=== PATIENT | female | born 1955 ===

== ENCOUNTER 2019-02-27 14:59 | Outpatient (CLI) | payer BC, OTHER ==
--- NOTE | 2019-02-28 08:33 | XRAY Report ---
Reason: NICOTINE DEPENDENCE, UNSPECIFIED, UNCOMPLICATED Procedure Date: 02/27/2019 Accession Number: [id number] / [id number] Procedure: XRS - Chest 2 View X-Ray CPT Code: 62954 Final Report FULL RESULT: EXAM: CHEST RADIOGRAPHY EXAM DATE: 02/27/2019. CLINICAL HISTORY: Nicotine dependence, UNSPECIFIED, UNCOMPLICATED. COMPARISON: None. TECHNIQUE: PA and lateral views. FINDINGS: Lungs/Pleura: Normal vasculature. Ill-defined opacity in the right apex. Nipple shadow projected over the right lower chest. No pleural fluid or pneumothorax. Mediastinum: Heart size is normal. Mild aortic tortuosity, otherwise normal mediastinal contours. Bones: Minimal degenerative changes of the spine and mild sigmoid thoracic scoliosis. IMPRESSION: Ill-defined opacity in the right apex; this could represent scarring or an ill-defined nodule. Further evaluation could be obtained with chest CT. Mild aortic tortuosity could be secondary to hypertension or atherosclerosis. [facility]
== END 2019-02-27 15:00 | disposition home or self-care (01) ==
LOC: DI.S 14:59
PROVIDERS: ATTEND Registered Nurse
DX: F17.200 Nicotine dependence, unspecified, uncomplicated (principal)
CPT/HCPCS: 71046

== ENCOUNTER 2019-05-03 11:42 | Outpatient (CLI) | payer OTHER ==
[2019-05-03 12:20] LABS: CREATININE 0.8 mg/dL (0.4-1.0)
== END 2019-05-03 11:43 | disposition home or self-care (01) ==
LOC: LAB 11:42
DX: Z98.890 Other specified postprocedural states (principal); C50.912 Malignant neoplasm of unspecified site of left female breast; Z17.1 Estrogen receptor negative status [ER-]
CPT/HCPCS: 36415; 82565